=== PATIENT | male | born 1970 | race Caucasian/White ===

== ENCOUNTER → 2018-09-08 06:40 | Outpatient (CLI) | payer MEDICAID, SELFPAY ==
--- NOTE | 2018-09-08 06:44 | CT_ITS ---
HISTORY: LLQ PAINHX-LEFT TESTICULAR CA X2 YEARS AGO W/ TESTICLE REMOVEDSURG-APPY EXAMINATION: CT Chest W/ Contrast TECHNIQUE: Helically acquired images were obtained of the chest following IV contrast. A radiation dose optimization technique was used for this scan. IV Contrast dosage and agent: 100CC Isovue 300 COMPARISON: 02/10/17 PET/CT FINDINGS: UPPER ABDOMEN: No acute pathology. HEART AND PERICARDIUM: Heart size is normal. There is no pericardial effusion. VESSELS: Ascending thoracic aorta is mildly ectatic but not aneurysmal. There is no aortic dissection. There is no central pulmonary embolism although this study was not performed with the pulmonary embolism protocol. MEDIASTINUM AND CHEY: There is no mediastinal or hilar adenopathy. Esophagus is unremarkable. There is no hiatal hernia. OTHER SOFT TISSUES: Included thyroid gland is unremarkable. There is no axillary, supraclavicular or lower cervical adenopathy. LUNGS AND LARGE AIRWAYS: Clear. No pneumothorax. PLEURA: Unremarkable. No pleural effusion or thickening. BONES: No suspicious lytic or blastic abnormality observed. CT/Chest WITH Contrast IMPRESSION: Negative contrast enhanced CT of the chest. Individualized dose optimization techniques were used for this CT. at 0502 Reported and signed by: Maikel Erickson MD Electronically Signed: Maikel Erickson, at 5:01 EDT Tel , Service support ,
--- NOTE | 2018-09-08 06:44 | CT_ITS ---
STUDY: CT ABDOMEN AND PELVIS WITH CONTRAST REASON FOR EXAM: Male, 47 years old. History of testicular carcinoma, left lower quadrant pain RADIATION DOSAGE (If Supplied By Facility): CTDIvol = ( 21.87 ) mGy, DLP = ( 2380.33 ) mGycm TECHNIQUE: Transaxial images were obtained from the dome of the diaphragm to the symphysis pubis without oral contrast. 100CC IV/Oral Isovue 300 was administered. Sagittal and coronal images were reconstructed. Individualized dose optimization techniques were used for this CT. COMPARISON: 02/10/2017 PET scan, 01/22/2017 CT FINDINGS: Lung bases described on chest CT performed concurrently. Normal liver. There is a solitary gallstone. Normal spleen. Normal pancreas. Normal bilateral adrenal glands. Normal right kidney. Normal left kidney. Normal visualized stomach. Normal small intestine. There are multiple colonic diverticula consistent with diverticulosis. There is non-visualization of the appendix. Normal abdominal aorta. Normal inferior vena cava. Normal retroperitoneum. Normal urinary bladder. There is a small umbilical hernia containing fat. Small subcentimeter lymph nodes in the bilateral inguinal regions similar since prior abdomen/pelvis CT without a dominant nick mass demonstrated. Operative changes of the right proximal femur. No lytic or sclerotic bone lesions are identified. Resolution of operative changes in the left groin. CT/Abdomen/Pelvis WITH Contrast IMPRESSION: 1. Since 01/22/2017 CT, stable exam. No new or enlarging adenopathy/mass. 2. Similar subcentimeter lymph nodes in the bilateral inguinal regions without dominant nick mass. Electronically Signed: Wade Montemayor MD at 15:21 EDT , Service support ,
== END ==
PROVIDERS: Family Provider Family Medicine; PCP Family Medicine; Referring Provider Internal Medicine Medical Oncology; Visit Provider Internal Medicine Medical Oncology
DX: C62.92 Malignant neoplasm of left testis, unspecified whether descended or undescended (principal)
CPT/HCPCS: 71260; 74177; Q9967